=== PATIENT | female | born 1975 | race Caucasian/White ===

== ENCOUNTER 2022-05-29 09:40 | Outpatient (RCR) | payer OTHER, SELFPAY | END 2022-07-31 17:13 | disposition home or self-care (01) | PROVIDERS: PCP Family Medicine; Visit Provider Family Medicine | DX: M72.2 Plantar fascial fibromatosis (principal); M76.62 Achilles tendinitis, left leg; R26.9 Unspecified abnormalities of gait and mobility; Z51.89 Encounter for other specified aftercare | CPT/HCPCS: 97140 ==

== ENCOUNTER 2025-04-01 07:30 | Outpatient (RCR) | payer BC, SELFPAY | END 2025-05-05 10:15 | disposition home or self-care (01) | PROVIDERS: PCP Family Medicine; Visit Provider Student in an Organized Health Care Education/Training Program | DX: M25.812 Other specified joint disorders, left shoulder (principal); Z51.89 Encounter for other specified aftercare | CPT/HCPCS: 97110; 97140; 97161 ==

== ENCOUNTER 2025-04-20 16:57 | Outpatient (CLI) | payer BC, SELFPAY | END 2025-04-20 16:58 | disposition home or self-care (01) | LOC: NFLDREF 04-23 03:17 | PROVIDERS: PCP Family Medicine; Referring Provider Family Medicine | DX: N30.00 Acute cystitis without hematuria (principal); B95.1 Streptococcus, group B, as the cause of diseases classified elsewhere | CPT/HCPCS: 87086; 87186 ==